=== PATIENT | male | born 1990 | race African-American/Black ===

== ENCOUNTER 2017-10-27 15:14 | Emergency (ER) | payer SELFPAY ==
[~2017-10-27] VITALS: Ht 180.3 cm; Wt 75.6 kg
[2017-10-27 15:19] VITALS: BP 141/61
== END 2017-10-27 17:50 | disposition left against medical advice (07) ==
LOC: EME 15:14
DX: R68.84 Jaw pain (principal); Z53.21 Procedure and treatment not carried out due to patient leaving prior to being seen by health care provider
CPT/HCPCS: 70450; 70486

== ENCOUNTER 2017-10-30 15:02 | Emergency (ER) | payer SELFPAY ==
[~2017-10-30] VITALS: Ht 180.3 cm; Wt 73.9 kg
[2017-10-30 21:44] VITALS: BP 126/69
== END 2017-10-30 21:45 | disposition short-term general hospital (02) ==
LOC: EME 15:02
DX: S02.609A Fracture of mandible, unspecified, initial encounter for closed fracture (principal); Y09 Assault by unspecified means; Z88.4 Allergy status to anesthetic agent
CPT/HCPCS: 99281; 99283; J1885

== ENCOUNTER 2017-11-01 23:49 | Emergency (ER) | payer SELFPAY ==
[~2017-11-01] VITALS: Ht 180.3 cm; Wt 68.7 kg
[2017-11-02 01:53] VITALS: BP 132/74
[2017-11-02] MEDS ORDERED: AUGMENTIN80 MG/ML PO (02:22)
[2017-11-02] MEDS ORDERED: OXYCODONE H5 MG/5 ML PO (02:22)
== END 2017-11-02 03:56 | disposition home or self-care (01) ==
LOC: EME 23:49
DX: S00.83XA Contusion of other part of head, initial encounter (principal); S02.609D Fracture of mandible, unspecified, subsequent encounter for fracture with routine healing; G89.18 Other acute postprocedural pain; F17.200 Nicotine dependence, unspecified, uncomplicated; W19.XXXA Unspecified fall, initial encounter; Y04.8XXD Assault by other bodily force, subsequent encounter; Z98.890 Other specified postprocedural states; Z88.6 Allergy status to analgesic agent
CPT/HCPCS: 70486; 99281; 99283; J2270

== ENCOUNTER 2017-11-20 18:58 | Emergency (ER) | payer SELFPAY ==
[~2017-11-20] VITALS: Ht 180.3 cm; Wt 72.9 kg
[~2017-11-20 18:58] MED LIST: AUGMENTIN80 MG/ML PO; OXYCODONE H5 MG/5 ML PO
[2017-11-20] MEDS ORDERED: OXYCODONE H5 MG/5 ML PO (21:05)
[2017-11-20] MEDS ORDERED: AUGMENTIN80 MG/ML PO (21:05)
[2017-11-20] MEDS ORDERED: ROXICODONE5 MG PO (21:19)
[2017-11-20 21:27] VITALS: BP 127/63
== END 2017-11-20 21:28 | disposition home or self-care (01) ==
LOC: EME 18:58
DX: G89.18 Other acute postprocedural pain (principal); K13.79 Other lesions of oral mucosa; Z98.890 Other specified postprocedural states; F17.200 Nicotine dependence, unspecified, uncomplicated; Z88.6 Allergy status to analgesic agent
CPT/HCPCS: 70150; 99281; 99284

== ENCOUNTER 2017-11-25 07:19 | Emergency (ER) | payer SELFPAY ==
[~2017-11-25] VITALS: Ht 180.3 cm; Wt 72.0 kg
[~2017-11-25 07:19] MED LIST changes: +ROXICODONE5 MG PO
[2017-11-25] MEDS ORDERED: OXYCODONE H5 MG/5 ML PO ×2 (08:03→08:04)
[2017-11-25] MEDS ORDERED: ROXICODONE5 MG PO (08:09)
[2017-11-25 08:41] VITALS: BP 118/83
== END 2017-11-25 08:30 | disposition home or self-care (01) ==
LOC: EME 07:19
DX: G89.18 Other acute postprocedural pain (principal); R68.84 Jaw pain; Z98.890 Other specified postprocedural states; Z88.6 Allergy status to analgesic agent

== ENCOUNTER 2017-11-28 19:14 | Emergency (ER) | payer SELFPAY ==
[2017-11-28 19:32] LABS: BASOPHIL (%) 0.5 % (0-1); BASOPHIL COUNT 0.1 K/uL (0-0.1); EOSINOPHIL (%) 0.3 % (0-5); HEMATOCRIT 41.2 % (38.0-50.0); HEMOGLOBIN 14.4 G/DL (12.5-16.6); IMMATURE GRANULOCYTE (%) 0.3 % (0.0-0.7); LYMPHOCYTE (%) 22.9 % (15-42); LYMPHOCYTE COUNT 2.5 K/uL (1.0-2.8); MCH 31.4 PG (29.0-34.0); MONOCYTE (%) 10.1 % (3-12); MONOCYTE COUNT 1.1 K/uL (0-0.8); NEUTROPHIL (%) 65.9 % (45-76); NEUTROPHIL COUNT 7.3 K/uL (1.8-6.4); PLATELET COUNT 270 K/uL (156-360); RBC DIS.WIDTH-CV 11.9 % (11.8-14.6); RBC DIS.WIDTH-SD 38.6 % (39-53); RED BLOOD COUNT 4.58 M/uL (4.00-5.50)
[2017-11-28 19:43] LABS: AMYLASE 34 IU/L (1-118); CHLORIDE 102 mEq/L (99-109); POTASSIUM 4.2 mEq/L (3.7-5.4); SODIUM 139 mEq/L (136-147)
[2017-11-28 19:45] LABS: GLUCOSE 86 mg/dL (70-99)
[2017-11-28 19:48] LABS: SERUM ETHYL ALCOHOL < 10 mg/dL
[2017-11-28 19:49] LABS: CREATININE 0.9 mg/dL (0.6-1.3); GFR ESTIMATE (CALCULATED) > 59 mL/min/ (58.99-99999)
[2017-11-28 19:50] LABS: UREA NITROGEN (BUN) 20 mg/dL (9-23)
[2017-11-28 19:52] LABS: LIPASE 4 U/L (1.0-51.0)
[2017-11-28] MEDS ORDERED: PERCOCET 5/31 TABLET PO (20:53)
== END 2017-11-28 21:17 | disposition home or self-care (01) ==
LOC: TRA 19:14
PROVIDERS: Emergency Medicine
PROC: 0HQCXZZ Repair Left Upper Arm Skin, External Approach (ICD-10-PCS; principal; 2017-11-28)
PROC: 0HQBXZZ Repair Right Upper Arm Skin, External Approach (ICD-10-PCS; principal; 2017-11-28)
PROC: 0HQDXZZ Repair Right Lower Arm Skin, External Approach (ICD-10-PCS; principal; 2017-11-28)
DX: S51.811A Laceration without foreign body of right forearm, initial encounter (principal); S41.111A Laceration without foreign body of right upper arm, initial encounter; S41.112A Laceration without foreign body of left upper arm, initial encounter; X99.9XXA Assault by unspecified sharp object, initial encounter; F41.9 Anxiety disorder, unspecified; F31.9 Bipolar disorder, unspecified
CPT/HCPCS: 73060; 73090; 80048; 81003; 82150; 83690; 85025; 86850; 86900; 86901; 99281; 99285; G0480; J2270

== ENCOUNTER 2017-12-02 00:12 | Emergency (ER) | payer OTHER ==
[~2017-12-02] VITALS: Ht 180.3 cm; Wt 70.8 kg
[~2017-12-02 00:12] MED LIST changes: +PERCOCET 5/31 TABLET PO
[2017-12-02 06:15] VITALS: BP 110/65
== END 2017-12-02 06:49 | disposition home or self-care (01) ==
LOC: EME 00:12
DX: T84.228A Displacement of internal fixation device of other bones, initial encounter (principal); S02.609D Fracture of mandible, unspecified, subsequent encounter for fracture with routine healing; S93.402A Sprain of unspecified ligament of left ankle, initial encounter; W19.XXXA Unspecified fall, initial encounter; F17.200 Nicotine dependence, unspecified, uncomplicated; Z88.6 Allergy status to analgesic agent
CPT/HCPCS: 99281; 99283